=== PATIENT | female | born 1955 | race Caucasian/White ===

== ENCOUNTER 2018-06-25 15:59 | Emergency (ER) | payer MEDICARE, MEDICAID ==
[2018-06-25] MEDS ORDERED: KETOROLAC 30 MG/ML VIAL IVP ONE (16:42)
--- NOTE | 2018-06-25 16:47 | Emergency Department Record ---
History of Present Illness - General Chief Complaint: Back Pain/Injury Stated Complaint: CHEST/BACK PAIN/HARD TO BREATH Time Seen by Provider: 06/25/18 16:08 Source: Patient Mode of Arrival: Ambulatory Limitations: No limitations - History of Present Illness Initial Comments: pt started having neck pain and scapular border pain 2 day ago which is now wrapping around her chest. it is made worse w movement. the pain incresaes w inspiration. she is scheduled to have a chest ct at [facility] tomorrow. this is similar to another time that she had pneumonia MD Complaint: Other Onset/Timin -: Days(s) Similar Symptoms Previously: Yes (Pneumonia 2009) Radiation: Other Severity: Mild Quality: Aching Consistency: Getting worse Improves With: None Worsens With: Deep breaths/cough, Movement Associated Symptoms: Chest pain, Cough, Shortness of breath Treatments Prior to Arrival: NSAIDS Treatment Prior to Arrival Comment:: 829 today - Related Data Home Medications Medication Instructions Recorded Confirmed Last Taken Albuterol Sulfate [Ventolin Hfa] 2 puff INH ASDIR 06/25/18 06/25/18 06/25/18 Lisinopril 10 mg PO DAILY 06/25/18 06/25/18 06/25/18 Nifedipine [Procardia Xl] 30 mg PO DAILY 06/25/18 06/25/18 06/25/18 Zolpidem Tartrate 10 mg PO QHS 06/25/18 06/25/18 06/25/18 Allergies Allergy/AdvReac Type Severity Reaction Status Date / Time NO KNOWN DRUG ALLERGY Allergy PT UNSURE Uncoded 06/25/18 16:11 OF REACTION Travel Screening - Travel/Exposure Within Last 30 Days Have you traveled within the last 30 days?: No - Travel/Exposure Within Last Year Have you traveled outside the [place] in the last year?: No - Additonal Travel Details Have you been exposed to anyone with a communicable illness?: No - Travel Symptoms Symptom Screening: None Review of Systems Reviewed: No additional complaints except as noted below Constitutional: Reports: As per HPI. Denies: Chills, Fever, Malaise, Night sweats, Weakness, Weight change Eyes: Reports: As per HPI. Denies: Eye discharge, Eye pain, Photophobia, Vision change ENT: Reports: As per HPI. Denies: Congestion, Dental pain, Ear pain, Epistaxis , Hearing loss, Throat pain Respiratory: Reports: As per HPI. Denies: Cough, Dyspnea, Hemoptysis, Stridor, Wheezes Cardiovascular: Reports: As per HPI. Denies: Arrhythmia, Chest pain, Dyspnea on exertion, Edema, Murmurs, Orthopnea, Palpitations, Paroxysmal nocturnal dyspnea, Rheumatic Fever, Syncope Endocrine: Reports: As per HPI. Denies: Fatigue, Heat or cold intolerance, Polydipsia, Polyuria Gastrointestinal: Reports: As per HPI. Denies: Abdominal pain, Constipation, Diarrhea, Hematemesis, Hematochezia, Melena, Nausea, Vomiting Genitourinary: Reports: As per HPI. Denies: Abnormal menses, Discharge, Dyspareunia, Dysuria, Frequency, Hematuria, Incontinence, Retention, Urgency Musculoskeletal: Reports: As per HPI. Denies: Arthralgia, Back pain, Gout, Joint swelling, Myalgia, Neck pain Skin: Reports: As per HPI. Denies: Bruising, Change in color, Change in hair/ nails, Lesions, Pruritus, Rash Neurological: Reports: As per HPI. Denies: Abnormal gait, Confusion, Headache, Numbness, Paresthesias, Seizure, Tingling, Tremors, Vertigo, Weakness Psychiatric: Reports: As per HPI. Denies: Anxiety, Auditory hallucinations, Depression, Homicidal thoughts, Suicidal thoughts, Visual hallucinations Hematological/Lymphatic: Reports: As per HPI. Denies: Anemia, Blood Clots, Easy bleeding, Easy bruising, Swollen glands Past Medical History - SOCIAL HISTORY Smoking Status: Never smoker Alcohol Use: None Drug Use: None - RESPIRATORY Hx Respiratory Disorders: Yes Comment:: See primary complaint - CARDIOVASCULAR Hx Cardio Disorders: No - NEURO Hx Neuro Disorders: No - GI Hx GI Disorders: Yes Hx Ulcer: Yes - Hx Genitourinary Disorders: No - ENDOCRINE Hx Endocrine Disorders: No - MUSCULOSKELETAL Hx Musculoskeletal Disorders: Yes Hx Arthritis: Yes - PSYCH Hx Psych Problems: No - HEMATOLOGY/ONCOLOGY Hx Hematology/Oncology Disorders: No Family Medical History Any Significant Family History?: Yes Hx Alcohol Use: Father Hx Heart Disease: Father Hx Resp Disorders: Mother Physical Exam - General General Appearance: Alert, Oriented x3, Cooperative, Mild distress - Head Head exam: Normal inspection - Eye Eye exam: Normal appearance, PERRL, EOMI Pupils: Normal accommodation - ENT ENT exam: Normal exam, Mucous membranes moist, Normal external ear exam, Normal orophraynx, TM's normal bilaterally Ear exam: Normal external inspection. negative: External canal tenderness Nasal Exam: Normal inspection. negative: Discharge, Sinus tenderness Mouth exam: Normal external inspection, Tongue normal Teeth exam: Normal inspection. negative: Dental caries Throat exam: Normal inspection. negative: Tonsillar erythema, Tonsillar exudate - Neck Neck exam: Tenderness. negative: Full ROM - Respiratory Respiratory exam: Normal lung sounds bilaterally. negative: Respiratory distress - Cardiovascular Cardiovascular Exam: Regular rate, Normal rhythm, Normal heart sounds - GI/Abdominal GI/Abdominal exam: Soft, Normal bowel sounds. negative: Tenderness - Rectal Rectal exam: Deferred - exam: Deferred - Extremities Extremities exam: Normal inspection, Full ROM, Normal capillary refill. negative: Tenderness - Back Back exam: Reports: Muscle spasm, Tenderness. Denies: Full ROM, Rash noted - Neurological Neurological exam: Alert, CN II-XII intact, Normal gait, Oriented X3 - Psychiatric Psychiatric exam: Normal affect, Normal mood - Skin Skin exam: Dry, Intact, Normal color, Warm Course Vital Signs 06/25/18 16:16 Temperature 98.6 F Pulse Rate 87 Respiratory 20 Rate Blood Pressure 147/72 Pulse Ox 98 - Reevaluation(s) Reevaluation #1: 06/25/18 19:28 pt feels much better Medical Decision Making - Lab Data Result diagrams: 06/25/18 16:45 06/25/18 16:45 Disposition Disposition: Discharge Clinical Impression: Torticollis, acute Disposition: Home, Self-Care Condition: (1) Good Instructions: Spasmodic Torticollis (ED) Additional Instructions: follow up with family doctor. return sooner if worse. moist heat to neck. Quality - Quality Measures Quality Measures: N/A - Blood Pressure Screening Does Patient Have Any of the Following: No Blood Pressure Classification: Hypertensive Reading Systolic Measurement: 147 Diastolic Measurement: 72 Screening for High Blood Pressure: < First Hypertensive BP, F/U Documented > [ [id number]] First Hypertensive Follow-up Interventions: Follow-up with rescreen GT 1 day and LT 4 weeks.
[2018-06-25 16:53] LABS: BASO % 0.3 % (0-6); EOS % 1.7 % (0-6); GRAN % 69.9 % (47-80); HEMATOCRIT 35.6 % (35.0-47.0); HEMOGLOBIN 11.2 gm/dl (11.6-16.0); LYMPH % 16.4 % (16-45); MEAN CORPUSCULAR HGB CONC 31.5 g/dl (32-36); MEAN PLATELET VOLUME 11.1 fl (7.4-10.4); MONO % 11.7 % (0-9); PLATELET COUNT 182 K/uL (130-400); RED CELL DISTRIBUTION WIDTH 12.7 % (11.5-14.5); WHITE BLOOD COUNT W/O DIFF 5.9 K/uL (4.2-12.2)
[2018-06-25 17:06] LABS: BLOOD UREA NITROGEN 12 mg/dL (8-23); CREATININE 0.5 mg/dL (0.5-0.9); EST GLOMERULAR FILTRATION RATE > 60 mL/min
[2018-06-25 17:09] LABS: GLUCOSE,RANDOM 97 mg/dL (74-109)
[2018-06-25 17:26] LABS: ERYTHROCYTE SEDIMENTATION RATE 29 mm/hr (0-30)
--- NOTE | 2018-06-27 09:34 | RADIOLOGY REPORT ---
EXAM: CHEST, TWO VIEWS HISTORY: COUGH, CONGESTION. TECHNIQUE: Two views of the chest were obtained. Comparison: 06/03/09. FINDINGS: The heart is not enlarged. There is no mediastinal mass. There is no infiltrate or vascular congestion identified. IMPRESSION: NO ACUTE CARDIAC OR PULMONARY ABNORMALITY. JOB NUMBER: [id number] MTDD
== END 2018-06-25 19:32 | disposition home or self-care (01) ==
LOC: ER 15:59
DX: M43.6 Torticollis (principal); R06.02 Shortness of breath; R07.9 Chest pain, unspecified; R05 Cough
CPT/HCPCS: 71046; 80048; 84484; 85027; 85379; 85651; 93005; 93010; 96374; 99284; J1885

== ENCOUNTER 2019-01-22 10:06 | Emergency (ER) | payer MEDICARE, MEDICAID ==
--- NOTE | 2019-01-22 10:29 | Emergency Department Record ---
History of Present Illness - General Chief Complaint: Fall Injury Stated Complaint: FALL Time Seen by Provider: 01/22/19 10:28 Source: Patient Mode of Arrival: Ambulatory Limitations: No limitations - History of Present Illness Initial Comments: 63 yo female presents after a fall on Tuesday. She was working in the garage and turned around tripping on wood and fell. She has had right side pain of the elbow, knee and ankle since then. No head injury. No neck pain. She had a walker at home and has been using it for support. MD Complaint: Fall -: Days(s) (3) Fall From: Standing When Fall Occurred: # Days [employer] (3) Fall Witnessed: No Place Fall Occurred: Home Loss of Consciousness: None Prolonged Down Time?: No Symptoms Prior to Fall: None Location: Other Location - Extremities: Right: Elbow, Knee, Ankle Severity: Moderate Quality: Aching Context: Other Associated Symptoms: Denies - [place] Coma Scale Eye Response: (4) Open spontaneously Motor Response: (6) Obeys commands Verbal Response: (5) Oriented Monika Total: 15 - Related Data Home Medications Medication Instructions Recorded Confirmed Last Taken Tramadol HCl [Ultram] 50 mg PO DAILY 01/22/19 01/22/19 Unknown Allergies Allergy/AdvReac Type Severity Reaction Status Date / Time NO KNOWN DRUG ALLERGY Allergy PT UNSURE Uncoded 01/22/19 10:32 OF REACTION Review of Systems Constitutional: Denies: Chills, Fever, Malaise, Weakness Eyes: Denies: Eye discharge ENT: Denies: Congestion, Throat pain Respiratory: Denies: Cough, Dyspnea, Hemoptysis, Stridor, Wheezes Cardiovascular: Denies: Chest pain, Palpitations, Syncope Endocrine: Denies: Fatigue Gastrointestinal: Denies: Abdominal pain, Diarrhea, Nausea, Vomiting Genitourinary: Denies: Dysuria, Urgency Musculoskeletal: Reports: Arthralgia, Joint swelling, Myalgia. Denies: Back pain, Neck pain Skin: Reports: Bruising. Denies: Change in color, Rash Neurological: Denies: Headache, Numbness, Weakness Psychiatric: Denies: Anxiety Hematological/Lymphatic: Denies: Easy bleeding, Easy bruising Past Medical History - SOCIAL HISTORY Smoking Status: Never smoker Drug Use: None - RESPIRATORY Hx Respiratory Disorders: Yes Comment:: See primary complaint - CARDIOVASCULAR Hx Cardio Disorders: No - NEURO Hx Neuro Disorders: No - GI Hx GI Disorders: Yes Hx Ulcer: Yes - Hx Genitourinary Disorders: No - ENDOCRINE Hx Endocrine Disorders: No - MUSCULOSKELETAL Hx Musculoskeletal Disorders: Yes Hx Arthritis: Yes - PSYCH Hx Psych Problems: No - HEMATOLOGY/ONCOLOGY Hx Hematology/Oncology Disorders: No Family Medical History Hx Alcohol Use: Father Hx Heart Disease: Father Hx Resp Disorders: Mother Physical Exam - General General Appearance: Alert, Oriented x3, Cooperative, No acute distress Limitations: No limitations - Head Head exam: Atraumatic, Normocephalic, Normal inspection Head exam detail: negative: Abrasion, Contusion, Hematoma, Laceration - Eye Eye exam: Normal appearance, PERRL. negative: Conjunctival injection, Scleral icterus - ENT ENT exam: Normal exam, Mucous membranes moist Ear exam: Normal external inspection Nasal Exam: Normal inspection Mouth exam: Normal external inspection Teeth exam: Normal inspection Throat exam: Normal inspection - Neck Neck exam: Normal inspection - Respiratory Respiratory exam: Normal lung sounds bilaterally. negative: Respiratory distress, Rhonchi, Stridor, Wheezes - Cardiovascular Cardiovascular Exam: Regular rate, Normal rhythm, Normal heart sounds - GI/Abdominal GI/Abdominal exam: Soft. negative: Tenderness - Rectal Rectal exam: Deferred - exam: Deferred - Extremities Extremities exam: Joint swelling, Tenderness. negative: Normal inspection, Full ROM Image of Full Body: 1 - Normal inspection, full ROM, tender mildly with supination and pronation 2 - swelling anterior, tender, pain with ROM 3 - mild lateral swelling, tender lateral - Back Back exam: Reports: Full ROM. Denies: CVA tenderness (R), CVA tenderness (L) - Neurological Neurological exam: Alert, Oriented X3 - Psychiatric Psychiatric exam: Normal affect, Normal mood. negative: Agitated, Anxious - Skin Skin exam: Dry, Intact, Normal color, Warm Course - Reevaluation(s) Reevaluation #1: 01/22/19 12:40 The XR reports were received and reviewed Non displaced patellar fracture The patient will be immobilized with a knee immobilizer. She has a walker she is doing well with. She will be referred to orthopedics for follow up Disposition Disposition: Discharge Clinical Impression: Patellar fracture Qualifiers: Encounter type: initial encounter Fracture type: closed Fracture morphology: unspecified fracture morphology Fracture alignment: nondisplaced Laterality: right Qualified Code(s): S82.001A - Unspecified fracture of right patella, initial encounter for closed fracture Disposition: Home, Self-Care Condition: (1) Good Instructions: Patellar Fracture (ED) Additional Instructions: Use the brace and walker You have been referred to [facility] for orthopedics Return if you have any concerns with your knee or any new concerns that develop Referrals: Krishna Canela [DOCTOR OF OSTEOPATH] - [facility] [Provider Group] Forms: Patient Portal Access Time of Disposition: 12:43 Quality - Quality Measures Quality Measures: N/A - Blood Pressure Screening Does Patient Have Any of the Following: Active Dx of HTN Blood Pressure Classification: Pre-Hypertensive BP Reading Systolic Measurement: 122 Diastolic Measurement: 88 Screening for High Blood Pressure: Patient Exclusion, Hx of HTN [G9744]
--- NOTE | 2019-01-22 14:43 | RADIOLOGY REPORT ---
EXAMINATION: Right Knee, Three Views EXAM DATE: 01/22/2019 11:38 AM TECHNIQUE: Frontal, lateral, and oblique INDICATION: fall, pain COMPARISON: None ENCOUNTER: Initial FINDINGS: Moderate to severe tricompartmental joint space narrowing especially the medial compartment with mild subarticular sclerosis and moderate marginal spurring especially patellofemoral spurring and medial compartment spurring. There is a moderate to large right suprapatellar joint effusion. There is evide nce of nondisplaced acute fracture involving the patella best seen in the lateral view extending thro ugh the articular margin IMPRESSION: 1. Acute nondisplaced patellar fracture with corresponding right suprapatellar hemarthrosis 2. Moderate to severe right knee osteoarthritis. Dictated by: Walter England DO on 01/22/2019 12:22 PM. .
--- NOTE | 2019-01-22 14:43 | RADIOLOGY REPORT ---
EXAMINATION: Right Ankle, Complete Minimum Three Views EXAM DATE: 01/22/2019 11:38 AM TECHNIQUE: AP, lateral, and oblique INDICATION: fall, pain COMPARISON: None ENCOUNTER: Initial FINDINGS: Mild to moderate diffuse osteopenia. No acute fracture or dislocation. IMPRESSION: Right ankle and hindfoot osteopenia. Dictated by: Walter England DO on 01/22/2019 12:21 PM. .
--- NOTE | 2019-01-22 14:43 | RADIOLOGY REPORT ---
EXAMINATION: Right Elbow, Complete Minimum Three Views EXAM DATE: 01/22/2019 11:38 AM TECHNIQUE: AP, lateral, and oblique INDICATION: fall, pain COMPARISON: None ENCOUNTER: Initial FINDINGS: There is no bone or joint abnormality. IMPRESSION: Within normal limits. Dictated by: Walter England DO on 01/22/2019 12:24 PM. .
== END 2019-01-22 12:52 | disposition home or self-care (01) ==
LOC: ER 10:06
DX: S82.001A Unspecified fracture of right patella, initial encounter for closed fracture (principal); M25.571 Pain in right ankle and joints of right foot; M25.521 Pain in right elbow; W18.09XA Striking against other object with subsequent fall, initial encounter; Y92.008 Other place in unspecified non-institutional (private) residence as the place of occurrence of the external cause; I10 Essential (primary) hypertension
CPT/HCPCS: 99284